=== PATIENT | female | born 1980 | race Caucasian/White ===

== ENCOUNTER 2024-03-18 12:19 | Outpatient (CLI) | payer OTHER, SELFPAY ==
[2024-03-18 12:33] LABS: Basophils % 0.9 % (0.1-2.0); Eosinophils % 0.8 % (0.1-12.0); Hematocrit 41.4 % (37.0-47.0); Hemoglobin 12.9 g/dL (12.2-16.2); Lymphocytes # 1.4 K/mm3 (0.7-4.5); Lymphocytes % 28.8 % (10-50); Mean Corpuscular HGB Conc 31.2 g/dL (31.8-35.4); Mean Corpuscular Hemoglobin 27.7 pg (27.0-31.2); Mean Corpuscular Volume 88.8 fl (81-99); Mean Platelet Volume 8.5 fl (7.4-10.4); Monocytes # 0.3 K/mm3 (0.1-1.0); Monocytes % 5.4 % (1.7-9.3); Neutrophils % 64.2 % (37.0-80.0); Platelet Count 342 K/mm3 (142-424); Red Blood Count 4.66 M/mm3 (4.20-5.40); Red Cell Distribution Width 15.2 % (11.5-17.5); White Blood Count 4.7 K/mm3 (4.8-10.8)
[2024-03-18 13:05] LABS: Alanine Aminotransferase 19 U/L (12-78); Albumin Level 4.6 g/dl (3.5-5.0); Albumin/Globulin Ratio 1.4 (1.1-1.8); Alkaline Phosphatase 65 U/L (38-126); Anion Gap 13.4 mEq/L (5-15); Aspartate Amino Transferase 32 U/L (14-36); Bilirubin,Total 0.4 mg/dl (0.2-1.3); Blood Urea Nitrogen 12 mg/dl (7-17); Calcium 10.3 mg/dl (8.4-10.2); Carbon Dioxide 25 mmol/L (22.0-30.0); Chloride 107 mmol/L (98-107); Cholesterol 281 mg/dl (140-200); Estimated Glomerular Filt Rate 78 ml/min (>60); GFR (African American) 94 ML/MIN (>60); Globulin 3.2 g/dL (1.3-3.2); Glucose 87 mg/dl (74-100); Potassium 4.4 mmoL/L (3.5-5.1); Sodium 141 mmol/L (136-145); Total Protein,Serum 7.8 g/dl (6.3-8.2); Triglycerides 62 mg/dl (30-150); VLDL Cholesterol 12 mg/dL (0-40)
[2024-03-18 13:20] LABS: 25-OH Vitamin D, Total 44.4 ng/mL (30-100)
[2024-03-18 13:31] LABS: Chol/HDL Ratio 2.2 (1-3.5); HDL Cholesterol 125 mg/dl (40-60)
[2024-03-18 13:35] LABS: Thyroid Stimulating Hormone 1.89 uIU/mL (0.465-4.68)
[2024-03-18 13:54] LABS: Vitamin B12 340 pg/mL (239-931)
[2024-03-18 15:38] LABS: Ferritin 9.28 ng/ml (6.24-137)
== END 2024-03-18 23:59 | disposition home or self-care (01) ==
LOC: LAB.DROPOF 12:20
PROVIDERS: PCP Nurse Practitioner Family; Visit Provider Nurse Practitioner Family
DX: I10 Essential (primary) hypertension (principal); F41.9 Anxiety disorder, unspecified; R79.89 Other specified abnormal findings of blood chemistry; D64.9 Anemia, unspecified; Z79.899 Other long term (current) drug therapy; Z86.39 Personal history of other endocrine, nutritional and metabolic disease
CPT/HCPCS: 80053; 80061; 82306; 82533; 82607; 82728; 83735; 84443; 85025

== ENCOUNTER 2025-01-11 09:45 | Outpatient (CLI) | payer OTHER, SELFPAY ==
[2025-01-11 14:37] LABS: Anti-Centromere B Antibodies ND; Anti-Jo-1 ND; Antichromatin Antibodies ND; Antiscleroderma-70 Antibodies ND; RNP Antibodies ND; Sjogren's Anti-SS-A ND; Sjogren's Anti-SS-B ND
[2025-01-11 16:26] LABS: Alanine Aminotransferase 21 U/L (12-78); Albumin Level 4.8 g/dl (3.5-5.0); Albumin/Globulin Ratio 1.7 (1.1-1.8); Alkaline Phosphatase 59 U/L (38-126); Anion Gap 14.8 mEq/L (5-15); Aspartate Amino Transferase 30 U/L (14-36); Bilirubin,Total 0.5 mg/dl (0.2-1.3); Blood Urea Nitrogen 13 mg/dl (7-17); Calcium 9.7 mg/dl (8.4-10.2); Carbon Dioxide 28 mmol/L (22.0-30.0); Chloride 100 mmol/L (98-107); Estimated Glomerular Filt Rate 53 ml/min (>60); GFR (African American) 65 ML/MIN (>60); Globulin 2.9 g/dL (1.3-3.2); Glucose 70 mg/dl (74-100); Potassium 4.8 mmoL/L (3.5-5.1); Sodium 138 mmol/L (136-145); Total Protein,Serum 7.7 g/dl (6.3-8.2)
[2025-01-13 10:11] LABS: Antinuclear Antibodies (ANA) Negative (Negative)
== END 2025-01-11 23:59 | disposition home or self-care (01) ==
LOC: LAB.DROPOF 01-12 12:59
PROVIDERS: PCP Nurse Practitioner Family; Visit Provider Nurse Practitioner Family
DX: I10 Essential (primary) hypertension (principal); H04.203 Unspecified epiphora, bilateral
CPT/HCPCS: 80053; 86038; 86225; 86235

== ENCOUNTER 2025-01-12 13:37 | Outpatient (CLI) | payer OTHER, SELFPAY | END 2025-01-12 23:59 | disposition home or self-care (01) | LOC: LAB.DROPOF 13:38 | PROVIDERS: PCP Nurse Practitioner Family; Visit Provider Nurse Practitioner Family | DX: H04.203 Unspecified epiphora, bilateral (principal) | CPT/HCPCS: 87070 ==

== ENCOUNTER 2025-05-19 06:47 | Emergency (ER) | payer OTHER, SELFPAY ==
[2025-05-19 06:54] VITALS: BP 144/104; PULSE 101; RESP 16; TEMP 36.7; O2SAT 100; BMI 26.5
--- NOTE | 2025-05-19 07:06 | ED_ITS ---
Discharge Plan Disposition Patient Disposition: Home, Self-Care Condition: Good Prescriptions Prescriptions: New diphenhydramine HCl [Allergy (diphenhydramine)] 25 mg tablet 25 mg PO Q6H Qty: 120 0RF methylprednisolone [Medrol (Cezar)] 4 mg tablets,dose pack 4 mg PO DAILY Qty: 21 0RF No Action olopatadine 0.7 % drops 1 drp ophthalmic (eye) DAILY PRN (Reason: itching) Qty: [address] 0.3-0.05 % drops,suspension 1 drp ophthalmic (eye) Q4H 3 Days Qty: 5 0RF tobramycin-dexamethasone 0.3-0.1 % drops,suspension 1 drp ophthalmic (eye) Q6H 5 Days Qty: 5 0RF sertraline 50 mg tablet See Rx Instructions .ROUTE .COMPLEX Qty: 30 1RF Dose Instruction: TAKE ONE TABLET BY MOUTH EVERY DAY Rx Instructions: TAKE ONE TABLET BY MOUTH EVERY DAY lisinopril 10 mg tablet 10 mg PO DAILY Qty: 30 2RF levocetirizine [Xyzal] 5 mg tablet 5 mg PO DAILY Qty: 30 2RF Referrals Follow up/Referrals: Kelly Rand APRN [Primary Care Provider, Medical] - See instructions Activity Restrictions/Add. Instructions Additional Instructions/Restrictions: Take Tylenol and ibuprofen every 6 hours. Take Benadryl every 6 hours starting at 1 PM today. Start the steroid Dosepak tomorrow as you received steroids in the ER today. Keep the hand wrapped with the Dru bandage, elevated above the heart and ice it for 20 minutes of every hour. If your swelling increases, you develop systemic symptoms, such as diarrhea, lethargy, vomiting, difficulty breathing, please return to the ER for reevaluation. Clinical Impressions Clinical Impression: Allergic reaction Qualifiers: Encounter type: initial encounter Qualified Code(s): T78.40XA - Allergy, unspecified, initial encounter Insect bite Qualifiers: Encounter type: initial encounter Site of insect bite: finger Finger: little finger Laterality: left Qualified Code(s): S60.467A - Insect bite (nonvenomous) of left little finger, initial encounter Instructions Patient Instructions: DI for Insect Bites and Stings Print Language Print Language: Sami Discharge ED Provider: Jacquelyn Alexandra General Adult HPI General Chief complaint: Allergic Reaction Stated complaint: wasp stings, L hand, arm swelling Time Seen by Provider: 05/19/25 06:56 Mode of Arrival: Ambulatory Source of Information: Patient Description of Symptoms (Recalled from ER Triage Doc. by RN): pt presents for eval of insect stings to the left arm and right leg that occurred yesterday evening. Pt denies taking benadryl or NSAIDs for the pain or swelling states I've put hydrocortisone on them History of Present Illness HPI narrative: Lissy Guy is a 45 y/o female presenting for evaluation of insect bites. Patient reports 2 wasp bites yesterday evening. She reports 1 on her left hand and 1 to the right thigh. Patient reports no known allergy to bees or other insects. Patient attempted to ice the arm prior to bed last night and on her way to work this morning. 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 She denies difficulty breathing, oral swelling, fever. Patient primarily complains of the swelling in the left arm. Patient has applied OTC hydrocortisone cream. Patient reports not taking her antihypertensive medication today or any [id number] medications. Related Data Previous Rx's ?Medication ?Instructions ?Recorded olopatadine 0.7 % eye drops 1 drp ophthalmic (eye) MIGUEL LY PRN 01/04/25 itching #5 mL tobramycin 0.3 %-dexamethasone 1 drp ophthalmic (eye) Q4H 3 days 02/01/25 0.05 % eye drops,suspension #5 mL (Tobradex ST) levocetirizine 5 mg tablet (Xyzal) 5 mg PO DAILY #30 t abs 04/11/25 lisinopril 10 mg tablet 10 mg PO DAILY #30 tabs 03/30 02/21 sertraline 50 mg tablet See Rx Instructions .Route 0 04/11/25 .COMPLEX #30 tabs tobramycin 0.3 %-dexamethasone 0.1 1 drp ophthalmic (e ye) Q6H 5 days 04/11/25 % eye drops,suspension #5 mL diphenhydramine HCl 25 mg tablet 25 mg PO Q6H #120 tab s 05/19/25 (Allergy (diphenhydramine)) methylprednisolone 4 mg tablets in 4 mg PO DAILY #21 t abs 05/19/25 a dose pack (Medrol (Cezar)) Allergies Allergy/AdvReac Type Severity Reaction Status Date / Time Sulfa (Sulfonamide Allergy Intermediate hives Verified 01/11/25 09:24 Antibiotics) [facility] Disclaimer: The information contained in this section may have been updated after the patient was seen, as this information can be updated by other users. Medical History (Updated 05/19/25 @ 07:15 by Jacquelyn Alexandra MD) Anxiety Hypertension Family History Mother Hyperlipidemia Hypertension Father Hypertension Hyperlipidemia Social History Smoking Status: Never smoker years smoked: 15 smoking status stop date: 11/30/2020 alcohol intake: current alcohol intake frequency: holidays/special occasions only substance use type: denies use current occupational status: employed Travel in the last 8 weeks?: None Have you lived/traveled outside US in past 30 days?: No Contact w/someone who lives/traveled outside US past 30 days?: No Exposure to someone with infectious disease in past 14 days?: No Do you have a fever (greater than 100.4 F or 38 C)?: No Have you tested positive for COVID-19?: No Exposed to someone with COVID-19 in past 14 days?: No Do you have a sore throat?: No Do you have a cough?: No Do you have any weakness?: No Do you have any diarrhea?: No Are you experiencing any unusual bleeding?: No Do you have any muscle aches/pain?: No Do you have any abdominal pain?: No Are you experiencing loss of taste or smell?: No Other Medical History Have you received the Pneumonia Vaccine: No ROS Obtained: Yes All systems reviewed & no additional complaints except as documented Physical Exam General General appearance: alert and in no apparent distress ENT ENT exam: Present normal exam, normal oropharynx, mucous membranes moist and normal external ear exam Neck Neck exam: Present normal inspection, full ROM and trachea midline; Absent meningismus or lymphadenopathy Respiratory Respiratory exam: Present normal lung sounds bilaterally; Absent respiratory distress Cardiovascular Cardiovascular exam: Present regular rate and normal rhythm; Absent JVD Abdominal Exam Abdominal exam: Present soft; Absent distention, tenderness or guarding Extremities Exam Extremities exam: Present full ROM, normal capillary refill and edema (left hand to elbow); Absent calf tenderness Expanded Upper Extremity Exam Left: Shoulder exam: Present normal inspection and full ROM Elbow exam: Present normal inspection and full ROM; Absent tenderness Forearm/Wrist exam: Present full ROM and swelling Hand exam: Present full ROM, swelling, erythema and other (pinpoint bite location on medial aspect 5th digit, no pustule) Neurosensory exam: Normal radial nerve, ulnar nerve and median nerve Vascular exam: Normal capillary refill, radial pulse and ulnar pulse Back Exam Back exam: Present normal inspection and full ROM Neurological Exam Neurological exam: Present alert and oriented X3 Psychiatric Psychiatric exam: Present normal affect and normal mood Skin Skin exam: Present warm, dry and intact Medical Decision Making Medical Records Medical records reviewed: Yes I reviewed the patient's medical records. Screening: Per USPSTF and CDC recommendations, given the prevalence of disease in [facility], it is our hospital?s policy to screen for HIV and viral Hepatitis for all patients aged 18 and over and those with ongoing risk factors. Rajiv Inquiry Pt receiving controlled substance: No Vital Signs: 05/19/25 06:54 05/19/25 07:32 Temperature 98.1 F Temperature Source Oral Pulse Rate 82 Pulse Rate [Radial] 101 H Respiratory Rate 16 18 Blood Pressure 150/98 H Blood Pressure [Right Arm] 144/104 H Blood Pressure Mean 128 Blood Pressure Mean [Right Arm] 117 Blood Pressure Position [Right Arm] Sitting 02 Sat by Pulse Oximetry 100 100 Oxygen Delivery Method Room Air Orders (Tests/Meds): ED MEDICATIONS Discontinued Medications Generic Name Dose Route Start Last Admin Trade Name Alanis PRN Reason Stop Dose Admin Dexamethasone 10 mg 05/19/25 07:05 05/19/25 07:11 Dexamethasone 4mg Tablet PO 05/19/25 07:06 10 mg ONCE ONE Administration Diphenhydramine HCl 50 mg 05/19/25 07:05 05/19/25 07:12 Diphenhydramine 50mg Capsule PO 05/19/25 07:06 50 mg ONCE ONE Administration Hydroxyzine Pamoate 25 mg 05/19/25 07:05 05/19/25 07:12 Hydroxyzine Pamoate 25mg Capsule PO 05/19/25 07:06 25 mg ONCE ONE Administration Lisinopril 10 mg 05/19/25 07:15 05/19/25 07:29 Lisinopril 10mg Tablet PO 06/20/25 07:16 10 mg ONCE ONE Administration Medical Decision Narrative: In summary, this is a 45-year-old female presenting for insect bite evaluation. Differential diagnosis includes but is not limited to, localized allergic reaction, anaphylaxis, shock. Per patient, insect bites occurred at least 12 hours prior to arrival. Patient has not taken any antihistamines or anti- inflammatory medications. Patient applied local, OTC topical hydrocortisone. Patient has no known allergies to insects, only to sulfa medications. Based on localized nature of patient's reaction, no laboratory evaluations will be performed today as not considered necessary in patient's evaluation. Patient is hypertensive and slightly tachycardic on arrival, however she reports not taking her morning medications as prescribed. Once settled in her room, patient is no longer tachycardic. We discussed management with various medications to help with inflammation as well as pruritus, to which the patient agreed. Patient was given Benadryl, hydroxyzine, Decadron. On reevaluation, patient has some improvement of her symptoms. Patient's arm was wrapped in an Dru bandage for additional symptom relief. Patient was given instructions on medication use for the next few days and advised to stay home from work today. Patient was also given her morning antihypertensive medication that she did not take at home. Patient given strict return precautions with regards to delayed anaphylactic symptoms or worsening allergic reaction symptoms. All questions answered. Patient discharged in stable condition. Jacquelyn Alexandra MD Critical Care Critical Care Time Critical Care Time: No
[2025-05-19] MEDS: DEXAMETHASONE 4MG TABLET 10 MG PO (07:11)
[2025-05-19] MEDS: hydrOXYzine pamoate 25MG CAPSULE 25 MG PO (07:12)
[2025-05-19] MEDS: diphenhydrAMINE 50MG CAPSULE 50 MG PO (07:12)
[2025-05-19] MEDS: LISINOPRIL 10MG TABLET 10 MG PO (07:29)
[2025-05-19 07:32] VITALS: BP 150/98; PULSE 82; RESP 18; O2SAT 100
[2025-05-19 08:16] VITALS: BP 147/86; PULSE 84; RESP 20; TEMP 37.1; O2SAT 97
== END 2025-05-19 08:18 | disposition home or self-care (01) ==
PROVIDERS: Emergency Provider Student in an Organized Health Care Education/Training Program; PCP Nurse Practitioner Family
DX: R22.32 Localized swelling, mass and lump, left upper limb (principal); S60.467A Insect bite (nonvenomous) of left little finger, initial encounter; T78.40XA Allergy, unspecified, initial encounter; W57.XXXA Bitten or stung by nonvenomous insect and other nonvenomous arthropods, initial encounter
CPT/HCPCS: 99283; J8540

== ENCOUNTER 2025-08-21 12:53 | Outpatient (CLI) | payer OTHER, SELFPAY ==
[2025-08-21 14:36] LABS: Albumin Level 4.5 g/dl (3.5-5.0); Chloride 101 mmol/L (98-107); Potassium 4.3 mmoL/L (3.5-5.1); Sodium 136 mmol/L (136-145)
[2025-08-21 14:38] LABS: Alanine Aminotransferase 12 U/L (12-78); Aspartate Amino Transferase 25 U/L (14-36); Blood Urea Nitrogen 13 mg/dl (7-17); Creatinine,Serum 1.20 mg/dl (0.52-1.04); Estimated Glomerular Filt Rate 48 ml/min (>60); GFR (African American) 59 ML/MIN (>60)
[2025-08-21 14:39] LABS: Albumin/Globulin Ratio 1.6 (1.1-1.8); Alkaline Phosphatase 69 U/L (38-126); Anion Gap 13.3 mEq/L (5-15); Bilirubin,Total 0.3 mg/dl (0.2-1.3); Calcium 9.5 mg/dl (8.4-10.2); Carbon Dioxide 26 mmol/L (22.0-30.0); Cholesterol 226 mg/dl (140-200); Globulin 2.9 g/dL (1.3-3.2); Glucose 98 mg/dl (74-100); Total Protein,Serum 7.4 g/dl (6.3-8.2); Triglycerides 113 mg/dl (30-150)
[2025-08-21 14:41] LABS: 25-OH Vitamin D, Total 38.0 ng/mL (30-100)
[2025-08-21 15:11] LABS: Thyroid Stimulating Hormone 2.62 uIU/mL (0.465-4.68)
[2025-08-21 15:15] LABS: Ferritin 9.15 ng/ml (6.24-137)
[2025-08-21 17:39] LABS: HDL Cholesterol 115 mg/dl (40-60)
[2025-08-21 18:36] LABS: Vitamin B12 237 pg/mL (239-931)
[2025-08-22 08:40] LABS: FSH 6.3 mIU/mL (.)
[2025-08-22 10:15] LABS: LH 4.7 mIU/mL (.)
== END 2025-08-21 23:59 | disposition home or self-care (01) ==
LOC: LAB 12:54
PROVIDERS: PCP Nurse Practitioner Family; Visit Provider Nurse Practitioner Family
DX: N92.6 Irregular menstruation, unspecified (principal); R79.89 Other specified abnormal findings of blood chemistry; I10 Essential (primary) hypertension; D64.9 Anemia, unspecified; Z13.220 Encounter for screening for lipoid disorders
CPT/HCPCS: 36415; 80053; 80061; 82306; 82607; 82670; 82728; 83001; 83002; 84144; 84443

== ENCOUNTER 2025-08-24 13:22 | Outpatient (CLI) | payer OTHER, SELFPAY ==
--- NOTE | 2025-08-24 13:30 | US_ITS ---
FINAL REPORT TECHNIQUE: Sonographic images of the kidneys and retroperitoneum were obtained in the longitudinal and transverse planes. CLINICAL HISTORY: N18.30 - Chronic kidney disease, stage 3 unspecified FINDINGS: The right kidney measures 11.2 cm in [id number] length. No hydronephrosis, mass, or stone. Cortical echogenicity and thickness are normal. The left kidney measures 10.8 cm in [id number] length. No hydronephrosis, mass, or stone. Cortical echogenicity and thickness are normal. There is a cortical defect along the mid kidney which could be related to scar or a duplicated renal collecting system. Limited evaluation of the spleen and liver demonstrate no acute abnormality. IMPRESSION: Cortical defect along the mid left kidney which could be congenital, otherwise morphologically normal kidneys. Reviewed, Interpreted and Dictated by Maame Henderson MD Transcribed by Diana Gomez Authenticated and [facility]
== END 2025-08-24 23:59 | disposition home or self-care (01) ==
LOC: RAD 13:23
PROVIDERS: PCP Nurse Practitioner Family; Visit Provider Nurse Practitioner Family
DX: N18.30 Chronic kidney disease, stage 3 unspecified (principal); R93.422 Abnormal radiologic findings on diagnostic imaging of left kidney
CPT/HCPCS: 76770

== ENCOUNTER 2025-10-02 13:10 | Outpatient (CLI) | payer OTHER, SELFPAY ==
--- OUTSIDE RECORDS SUMMARY | 2025-10-02 13:16 | XMS_ITS | Clinical Summary ---
Author Organization [facility] Address [address] [place] [address] Care Team Providers Care Winch Operator Name Role Phone Kelly Rand Jayden SQUIRES Primary Care Provider [phone] Social History Tobacco Use Types Packs/Day Years Used Date Smoking Tobacco: Never Assessed Comments Unknown Sex and Gender Information Value Date Recorded Sex Assigned at Not on file Legal Sex Female 3:24 PM EDT Gender Identity Not on file Sexual Orientation Not on file Plan of Treatment Upcoming Encounters Date Type Department Care Team (Late st Contact Info) Description 12/15/2025 10:00 AM EST Office Visit [facility] [address] [place] [address] Kleber Hernández MD [address] [place] [phone] Health Maintenance Due Date Last Done Comments [facility]-Depression Screening 1979 [facility]-HIV Screening 1979 [facility]-Hepatitis C Screening 1979 [facility]-/Child/Adol SDOH Screenings 1979 [facility]- SDOH Screenings 1997 [facility]-Adult SDOH Screenings 1997 [facility]-DTaP,Tdap,and Td Vaccine s (1 - Tdap) 1998 [facility]-Hepatitis B Vaccines (1 of 3 - 19+ 3-dose series) 1998 [facility]-Pap Smear 2000 [facility]-Cervical Cancer Screening 2009 [facility]-HPV/Cotest 2009 CT Colonography 2024 Colonoscopy 2024 FIT-DNA 2024 FIT 2024 FOBT 2024 Sigmoidoscopy 2024 [facility]-Colorectal Cancer Screening 2024 [id number] Vaccine (1 - 20 24-25 season) 2025 [facility]-Influenza Vaccine (#1) 2025 [facility]-Zoster Vaccines (1 of 2) 2029 HPV Vaccines Aged Out No longer eligi ble based on patient's age to complete this topic [facility]-HIB Vaccines Aged Out No longer e ligible based on patient's age to complete this topic [facility]-Hepatitis A Vaccines Aged Out No longer eligible based on patient's age to complete this topic [facility]-IPV Vaccines Aged Out No longer e ligible based on patient's age to complete this topic [facility]-Pneumococcal Vaccine: Pediatrics (0 to 5 Years) and At-Risk Patients (6 to 49 Years) Aged Out No long er eligible based on patient's age to complete this topic [facility]-Rotavirus Vaccines Aged Out No lo nger eligible based on patient's age to complete this topic Care Teams Winch Operator Relationship Specialty Start Date End Date Kelly Rand APRN [address] [place] [address] PCP - General 09/27/25
[2025-10-02 14:15] LABS: Albumin Level 4.4 g/dl (3.5-5.0); Anion Gap 10.9 mEq/L (5-15); Blood Urea Nitrogen 15 mg/dl (7-17); Calcium 9.4 mg/dl (8.4-10.2); Carbon Dioxide 26 mmol/L (22.0-30.0); Chloride 104 mmol/L (98-107); Creatinine,Serum 1.00 mg/dl (0.52-1.04); Estimated Glomerular Filt Rate 60 ml/min (>60); GFR (African American) 72 ML/MIN (>60); Glucose 107 mg/dl (74-100); Phosphorous 4.3 mg/dl (2.5-4.5); Potassium 3.9 mmoL/L (3.5-5.1); Sodium 137 mmol/L (136-145)
== END 2025-10-02 23:59 | disposition home or self-care (01) ==
LOC: LAB 13:10
PROVIDERS: PCP Nurse Practitioner Family; Visit Provider Nurse Practitioner Family
DX: N18.30 Chronic kidney disease, stage 3 unspecified (principal)
CPT/HCPCS: 36415; 80069